=== PATIENT | female | born 1990 | race Caucasian/White ===

== ENCOUNTER 2017-10-23 13:02 | Emergency (ER) | payer OTHER ==
[~2017-10-23] VITALS: Ht 170.2 cm; Wt 92.0 kg
[~2017-10-23 13:02] MED LIST: FRRS300 PO; MTR600X PO; OXYC-57 PO; PRENTAB26 PO
[2017-10-23 13:06] VITALS: BP 116/71; PULSE 94; TEMP 36.3; O2SAT 97; Ht 170.2 cm; Wt 92.0 kg
[2017-10-23] MEDS ORDERED: CHOL1000 PO (13:55)
[2017-10-23] MEDS ORDERED: LCTX PO (13:55)
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
== END 2017-10-23 14:27 | disposition home or self-care (01) ==
LOC: C.EDB 13:04 → C.EDD 14:27
DX: Z04.3 Encounter for examination and observation following other accident (principal); Z3A.32 32 weeks gestation of pregnancy; Z88.0 Allergy status to penicillin

== ENCOUNTER 2020-09-23 21:28 | Inpatient (IN) ==
--- OUTSIDE RECORDS SUMMARY | 2020-09-23 21:30 | External Medical Summary | Continuity of Care Document ---
:1990 Author Name Eva Calhoun Address Unavailable Unavailable , Care Team Providers Name Role Phone Tono Calhoun Unavailable [email or web address], [email or web address] Unavailable Unavailable Unavailable Unavailable Unavailable Problems Active medical history not documented Allergies and Adverse Reactions Allergy history not documented Medications Medications not documented Procedures Procedures not documented Immunizations Immunizations not documented Plan of Treatment Planned Observations Planned Goals not documented Results No Known Results Results not documented
--- NOTE | 2020-09-23 22:51 | History and Physical Report ---
DATE OF ADMISSION: 09/23/2020 CHIEF COMPLAINT: Intrauterine at 38 weeks 3 days, contractions, repeat . HISTORY OF PRESENT ILLNESS: The patient is a 30-year-old 3, para 2, general health is good. Her due date is 10/04/2020. She has had no problems. She is group B strep positive. Her first delivery was in 2014 where she had an 18-hour labor, delivered a male , 10 pounds 2 ounces via . Postoperatively, became septic, spent 2 days in the ICU. eventually was fine, was given antibiotics. Cultures were not positive. Second delivery 2018, girl, 9 pounds 8 ounces at 39 weeks, repeat . No problems. Was done at [facility]. The patient has been jaqueline off and on since this morning. At times she will be quiet, other times she will have runs of contractions down to every 7 minutes, lasting for an hour or so. Some of these contractions are rated 7/10 on the pain scale. She has not complained of leakage of fluid, or any vaginal bleeding. PAST MEDICAL HISTORY: She has 2 children in good health. ALLERGIES: SHE IS ALLERGIC TO PENICILLIN, WHICH CAUSES SWELLING OF HER THROAT. PAST SURGICAL HISTORY: She has had 2 C-sections, had wisdom teeth removed. MEDICAL HISTORY: No history of rheumatic fever, heart disease, heart murmur, diabetes, tuberculosis. SOCIAL HISTORY: No smoking, no alcohol intake with . Works at [employer]. FAMILY HISTORY: Mom 62 in good health. Father 62 in good health. Two brothers in good health. REVIEW OF SYSTEMS: She has occasional migraine headaches and when she is she gets ocular migraines. PHYSICAL EXAMINATION: GENERAL: Well-developed, well-nourished 30-year-old white female, alert, oriented x3 and cooperative. EYES: Conjunctivae are pink. Sclerae white, no evidence of jaundice. HEART: Had regular rhythm. S1, S2 are normal. LUNGS: Clear to auscultation and percussion. ABDOMEN: Soft and nontender. Contractions were palpable. Estimated weight was well over 9 pounds. There is a well-healed Pfannenstiel scar. PELVIC: Revealed vertex presentation, ballottable. Cervix was posterior, 1 cm, uneffaced. MUSCULOSKELETAL: No calf tenderness. IMPRESSIONS OF THIS CASE: Status post 2 C-sections, status post wisdom teeth removal and early labor.
[2020-09-23] MEDS ORDERED: CLINDAMYCIN 900 MG in DEXTROSE 5% 50 ML IV ONE (23:45)
[2020-09-23] MEDS ORDERED: CITRIC ACID/SODIUM CITRATE 15 ML UDC PO ONE (23:45)
[2020-09-24] MEDS: LACTATED RINGER'S 1,000 ML IV SCH
[2020-09-24 00:02] LABS: Basophils # (auto) 0.01 K/uL (0-0.2); Basophils % (auto) 0.1 %; Eosinophils # (auto) 0.03 K/uL (0-0.5); Eosinophils % (auto) 0.3 %; Hematocrit (blood only) 33.8 % (37-47); Hemoglobin 11.7 g/dL (12.0-16.0); Immature Granulocytes # (auto) 0.05 K/uL (0.00-0.02); Immature Granulocytes % (auto) 0.6 %; Lymphocytes # (auto) 2.41 K/uL (1.2-3.4); Mean Corpuscular Hemoglobin 29.8 pg (25-34); Mean Platelet Volume 10.4 fL (7.4-10.4); Monocytes # (auto) 0.57 K/uL (0.11-0.59); Monocytes % (auto) 6.6 %; Neutrophils # (auto) 5.53 K/uL (1.4-6.5); Neutrophils % (auto) 64.4 %; Platelet Count 179 K/uL (130-400); RDW Coefficient of Variation 13.4 % (11.5-14.5); RDW Standard Deviation 41.9 fL (36.4-46.3); Red Blood Count 3.93 M/uL (4.2-5.4)
[2020-09-24 00:04] LABS: Mean Corpuscular Hgb Conc 34.6 g/dL (32-36)
[2020-09-24] MEDS ORDERED: ePHEDrine sulfate 50 MG/ML AMP IV PRN (00:31)
[2020-09-24] MEDS ORDERED: diphenhydrAMINE 50 MG/ML VIAL IV PRN ×2 (00:31→18:31)
[2020-09-24] MEDS ORDERED: HYDROmorphone INJ 0.5 MG/0.5 ML SYR IV PRN (00:31)
[2020-09-24] MEDS ORDERED: LACTATED RINGER'S 500 ML IV PRN (00:31)
[2020-09-24] MEDS ORDERED: NALOXONE HCL 0.08 MG in SYRINGE 1.8 ML IV PRN (00:31)
[2020-09-24] MEDS ORDERED: NALOXONE HCL 1 MG in SODIUM CHLORIDE 0.9% 1000ML 1,000 ML IV PRN (00:31)
[2020-09-24] MEDS ORDERED: MoRPHine SULFATE PF 1 MG/ML 10 ML AMP/VIAL INT SPINAL ONE (00:31)
[2020-09-24] MEDS ORDERED: NALOXONE HCL 0.4 MG/1 ML VIAL/CARP IV PRN (00:31)
--- NOTE | 2020-09-24 00:34 | Anesthesiology Consultation ---
Date of Service September 24, 2020 Covid 19 negative on 09/23/20. Assessment & Plan (1) Encounter for pre-operative examination: Chart Review Chart Review: Acceptable Risk for Surgery and Patient NOT seen in Pre Admission Testing Consults Requested none ASA ASA2 Proposed Anesthesia Anesthesia Type: MAC Spinal Risk / Benefits Reviewed With: PT / POA / Parent / Guardian, Accepts Plan and Informed Consent Obtained History Surgery Operation Date: 09/23/20 23:30 Proposed Procedures p Section in OR - Luigi Cristin Forbes MD Height/Weight Height: 5 ft 8 in Weight: 100.698 kg Allergies Allergy/AdvReac Type Severity Reaction Status Date / Time Penicillins Allergy Severe SEVERE Verified 10/23/17 13:55 HIVES Medications Home Medications Medication Instructions Recorded Confirmed Last Taken vit no.[id number] 1 tab PO DAILY 09/23/20 09/23/20 09/23/20 [ Vitamin] Active Medications Generic Name Dose Route Start Last Admin Trade Name Freq PRN Reason Stop Dose Admin Lactated Ringer's 1,000 mls @ 125 mls/hr 09/23/20 23:45 09/24/20 00:00 Lr IV 10/23/20 23:44 999 mls/hr .Q8H BRUNA Administration NPO Date Last Intake of Fluids: 09/23/20 Time Last Intake of Fluids: 20:00 Date Last Intake of Solids: 09/23/20 Time Last Intake of Solids: 16:00 Exercise / Class Metabolic Activity II 4-5 Yardwork/Stairs/Walk up hill Past Anesthesia History No Hx of Anesthesia Complications and No Family Hx of Anesthesia Complications History of PONV No Hx of PONV and No Hx of Motion Sickness Social History Smoking Status: Never smoker Hx Alcohol Use: No Hx Substance Use: No Review of Systems no chest pain or sob Physical Exam Vital Signs Last Vital Signs Temp 36.8 C 09/23/20 21:43 Pulse 85 09/24/20 00:29 Resp 18 09/23/20 21:43 BP 128/73 09/23/20 21:56 Pulse Ox 97 09/24/20 00:29 ENMT Mouth: no TMJ abnormality Thyromental Distance: > or= 3.5 Finger Breadths Mallampati Class: II Neck normal visual inspection Respiratory normal respiratory effort Auscultation: lungs clear to auscultation bilaterally Cardiovascular Rate/Rhythm: regular rate and regular rhythm Musculoskeletal Spine: normal cervical ROM Neurologic moves all extremities Psychiatric Orientation: alert and oriented x 3 Testing Laboratory Results 09/23/20 23:51
[2020-09-24] MEDS ORDERED: MoRPHine SULFATE PF 1 MG/ML 10 ML AMP/VIAL ONE (00:38)
[2020-09-24] MEDS ORDERED: fentaNYL citrate 100 MCG/2 ML VIAL ONE (00:38)
[2020-09-24] MEDS ORDERED: DC INTRASPINAL MORPHINE SCH (00:45)
[2020-09-24] MEDS ORDERED: SODIUM CHLORIDE 0.9% 1000ML 1,000 ML IV SCH (00:45)
[2020-09-24] MEDS ORDERED: NO NARCOTICS OR SEDATIVES SCH (00:45)
[2020-09-24] MEDS ORDERED: OXYTOCIN 10 UNITS/ML VIAL ONE ×3 (00:55→01:41)
[2020-09-24] MEDS ORDERED: PHENYLEPHRINE 100MCG/ML 5ML SYR ONE (00:58)
[2020-09-24] MEDS ORDERED: ONDANSETRON INJ 2 MG/ML 2 ML VIAL ONE (01:03)
[2020-09-24] MEDS ORDERED: OXYTOCIN 10 UNITS/ML VIAL IM ONE (01:43)
--- NOTE | 2020-09-24 01:53 | Post Operative Brief Note ---
Immediate Post Op Note v1 Date of Surgery September 24, 2020 Pre & Post Diagnosis Operation Date: 09/23/20 23:30 Pre-Op Diagnosis: repeat caesarean section labor macrosomia Post-Op Diagnosis: same as above I identified the patient and participated in the time-out.: Yes Procedure Operation Date: 09/23/20 23:30 Actual Procedures p Section in OR Live Female @ 0108 - Luigi Forbes MD Surgeon Luigi Forbes MD Wire Wrapping Machine Operator Dr García Estimated Blood Loss 600 Findings Consistent with Post-Op Diagnosis Specimens placenta Drains Vicente Catheter Anesthesia Type Spinal Disposition Accompanied Patient To Recovery: No Disposition: Recovery Room
[2020-09-24] MEDS ORDERED: BENZOCAINE 20% AER SPR 82.5 GM CAN EXT PRN (01:54)
[2020-09-24] MEDS ORDERED: MAGNESIUM HYDROXIDE SUSP 30 ML UDC PO PRN (01:54)
[2020-09-24] MEDS ORDERED: SUPERCREAM 0.870% 15 GM JAR EXT PRN (01:54)
[2020-09-24] MEDS ORDERED: HYDROCORTISONE ACETATE 25 MG SUPP PR PRN (01:54)
[2020-09-24] MEDS ORDERED: SENNA 8.6 MG TAB PO PRN (01:54)
[2020-09-24] MEDS ORDERED: DIPHTHERIA/TETANUS/PERTUSSIS 0.5 ML SYR/VIAL IM ONE (01:54)
[2020-09-24] MEDS: KETOROLAC 30 MG/ML VIAL IV PRN ×2 (03:10→11:35)
--- NOTE | 2020-09-24 04:13 | Operative Report (OR) ---
DATE OF OPERATION: 09/24/2020 The patient has had 2 previous sections for macrosomia and cephalopelvic disproportion. She is about 38 weeks 3 days. She has been in and out of labor all day. She called in the evening. She has had contractions started in the morning. It would stop and then restart. PREOPERATIVE DIAGNOSIS: Repeat section, active labor. POSTOPERATIVE DIAGNOSES: Repeat section, active labor. Delivered live female infant. SURGEON: Reyes Forbes MD PACKAGE DYE STAND LOADER: Gume García MD ESTIMATED BLOOD LOSS: 600 mL ANESTHESIA: Spinal. OPERATIVE FINDINGS AND PROCEDURE: The patient was brought to the OR table, correctly identified by armband and conversation. Spinal anesthesia was administered. Compression stockings were applied. A Vicente catheter was inserted aseptically in the bladder, connected to gravity drainage. Lower abdomen was painted with an alcohol based sterilizing solution, waited 3 minutes for it to dry. It was draped in usual sterile fashion. Pfannenstiel incision was made through a previous scar. Incision was carried down to the muscle and through the fascia. Then the fascia was undermined bluntly and from the underlying muscle by blunt and sharp dissection. Recti muscles were in the midline. The peritoneum was carefully raised and entered. Several omental adhesions to the undersurface of the incision were taken down. The lower uterine segment was exposed. A section retractor was inserted into the incision to provide adequate exposure of the lower uterine segment. Incision was made above the vesicouterine fold. The lower uterine segment was scored with a knife, then entered bluntly with the scissors. Clear amniotic fluid was seen at this time. Mr Teacher's hand was inserted in uterine cavity, a vectis retractor was applied, fundal pressure, live female infant was delivered. breathed and cried spontaneously, was attended to by the offset lithographic press setter who was scrubbed and present at the time of delivery. Cord blood was taken. The placenta was removed manually. Ten units of Pitocin were injected into the myometrium of the uterus. Uterine cavity was cleansed with a clean sponge. All membranes were removed. The lower uterine segment defect was approximated in layers. Deep layer was a heavy chromic, approximated the muscular layer, then a heavy Vicryl was used to approximate the fascial layer over the muscular layer and 3 interrupted [id number] sutures of Vicryl were placed along the approximation to complete the hemostasis. Following this, hemostasis was good. The bladder edges were restored with a running 3-0 chromic, which restored the integrity of the vesicouterine fold. Tubes and ovaries were inspected. Pelvis was cleansed of all blood clots and debris. Uterus, tubes, and ovaries were reinserted into the abdominal cavity. Incision was checked for hemostasis, it was good. Packs were removed. Peritoneum was closed with a mattress suture of chromic catgut. Recti muscles were approximated with interrupted [id number] suture of chromic catgut. The fascia was closed with continuous interlocking suture of Vicryl on each side, tied in the midline. Subcutaneous was approximated with a running plain and skin edges were approximated with staple clips. I attest to the content of the Intraoperative Record and any orders documented therein. Any exception s are noted below.
[2020-09-24] MEDS: OXYTOCIN 20 UNITS in LACTATED RINGER'S 1,000 ML IV SCH ×2 (04:24→13:35)
[2020-09-24] MEDS: ONDANSETRON INJ 2 MG/ML 2 ML VIAL IV PRN ×2 (04:40→11:35)
--- NOTE | 2020-09-24 05:31 | Anesthesiology Progress Note ---
Date of Service September 24, 2020 Anesthesia Post Procedure Vital Signs Vital Signs: Temp Pulse Resp BP Pulse Ox 09/24/20 04:24 70 95 09/24/20 04:19 90 97 09/24/20 04:16 70 103/53 L 09/24/20 04:15 18 09/24/20 04:14 68 95 09/24/20 04:09 82 96 09/24/20 04:04 87 97 09/24/20 03:59 89 97 09/24/20 03:54 82 97 09/24/20 03:49 78 96 09/24/20 03:45 84 126/76 09/24/20 03:44 84 97 09/24/20 03:39 88 97 09/24/20 03:34 72 95 09/24/20 03:29 70 97 09/24/20 03:24 76 96 09/24/20 03:19 70 95 09/24/20 03:16 71 131/57 L 09/24/20 03:15 18 09/24/20 03:14 76 97 09/24/20 03:09 72 97 09/24/20 03:05 18 09/24/20 03:04 75 97 09/24/20 02:59 65 98 09/24/20 02:57 76 137/63 09/24/20 02:55 18 09/24/20 02:54 77 97 09/24/20 02:49 77 97 09/24/20 02:48 71 133/60 09/24/20 02:45 18 09/24/20 02:44 76 97 09/24/20 02:39 82 97 09/24/20 02:37 75 106/58 L 09/24/20 02:35 18 09/24/20 02:34 88 98 09/24/20 02:30 80 94 09/24/20 02:29 79 97 09/24/20 02:28 86 117/59 L 09/24/20 02:25 18 09/24/20 02:24 90 99 09/24/20 02:19 97 H 99 09/24/20 02:15 36.7 C 18 09/24/20 02:14 79 98 09/24/20 02:09 86 96 09/24/20 02:04 84 98 09/24/20 02:00 86 107/59 L 09/24/20 01:59 83 99 09/24/20 00:29 85 97 09/23/20 21:56 89 128/73 09/23/20 21:43 36.8 C 89 18 Pain Intensity Lower Abdomen: Pain Intensity: 2 Transfer of Care Handoff Completed per policy Notes Mental Status: alert / awake / arousable Patient Amnestic to Procedure: Yes Nausea / Vomiting: adequately controlled Pain: adequately controlled Airway Patency, RR, SpO2: stable & adequate BP & HR: stable & adequate Hydration State: stable & adequate Neuraxial Anesthesia: was administered and sensory block is resolving Anesthetic Complications: no major complications apparent and Pt Satisfied with anesthetic care
[2020-09-24] MEDS: PRENATAL VITAMIN 1 TAB PO SCH (08:19)
[2020-09-24] MEDS: SIMETHICONE 80 MG CHEW PO SCH ×4 (08:19→21:46)
[2020-09-24] MEDS: DOCUSATE SODIUM 100 MG CAP PO SCH ×2 (08:19→21:46)
[2020-09-24] MEDS: FERROUS SULFATE 325 MG TAB PO SCH (08:19)
--- NOTE | 2020-09-24 16:13 | Ultrasound Report ---
US venous doppler LE LT CLINICAL HISTORY: left lower extremity pain COMPARISON STUDY: No previous studies for comparison. FINDINGS: Real-time and color flow Doppler imaging were performed. Flow was seen within the femoral, popliteal and calf veins with no intraluminal thrombus demonstrated. The saphenous vein is patent. IMPRESSION: No evidence of left lower extremity DVT ACT 112: Negative or not required by law. Electronically signed by: Varghese Danielson M.D. 09/24/2020 4:12 PM
[2020-09-24] MEDS ORDERED: PROMETHAZINE HCL 25 MG in SODIUM CHLORIDE 0.9% 50 ML IV PRN (18:31)
[2020-09-24] MEDS ORDERED: ONDANSETRON INJ 2 MG/ML 2 ML VIAL IV PRN (18:31)
[2020-09-24] MEDS ORDERED: KETOROLAC 30 MG/ML VIAL IV PRN (18:31)
[2020-09-24] MEDS ORDERED: ZOLPIDEM TARTRATE 5 MG TAB PO PRN (18:31)
[2020-09-24] MEDS ORDERED: MEPERIDINE HCL 50 MG/ML CARP IV PRN (18:31)
[2020-09-24] MEDS ORDERED: diphenhydrAMINE Capsule 25 MG CAP PO PRN (18:31)
[2020-09-24] MEDS: oxyCODONE/ACETAMINOPHEN 5mg/325mg TAB PO PRN (19:08)
[2020-09-24] MEDS: IBUPROFEN 600 MG TAB PO PRN (19:08)
[2020-09-25] MEDS: LACTATED RINGER'S 1,000 ML IV SCH ×5 (00:54→04:34)
[2020-09-25] MEDS: OXYTOCIN 20 UNITS in LACTATED RINGER'S 1,000 ML IV SCH (00:55)
[2020-09-25] MEDS: oxyCODONE/ACETAMINOPHEN 5mg/325mg TAB PO PRN ×6 (06:04→22:28)
[2020-09-25] MEDS: IBUPROFEN 600 MG TAB PO PRN ×6 (06:05→22:28)
[2020-09-25 06:53] LABS: Basophils # (auto) 0.01 K/uL (0-0.2); Basophils % (auto) 0.1 %; Eosinophils # (auto) 0.03 K/uL (0-0.5); Eosinophils % (auto) 0.4 %; Hematocrit (blood only) 33.7 % (37-47); Hemoglobin 11.2 g/dL (12.0-16.0); Immature Granulocytes # (auto) 0.03 K/uL (0.00-0.02); Immature Granulocytes % (auto) 0.4 %; Lymphocytes # (auto) 1.86 K/uL (1.2-3.4); Lymphocytes % (auto) 22.4 %; Mean Corpuscular Hemoglobin 29.2 pg (25-34); Mean Corpuscular Hgb Conc 33.2 g/dL (32-36); Mean Platelet Volume 10.5 fL (7.4-10.4); Monocytes # (auto) 0.65 K/uL (0.11-0.59); Monocytes % (auto) 7.8 %; Neutrophils # (auto) 5.72 K/uL (1.4-6.5); Neutrophils % (auto) 68.9 %; Platelet Count 159 K/uL (130-400); RDW Coefficient of Variation 13.7 % (11.5-14.5); RDW Standard Deviation 44.2 fL (36.4-46.3); Red Blood Count 3.83 M/uL (4.2-5.4)
[2020-09-25] MEDS: FERROUS SULFATE 325 MG TAB PO SCH (08:10)
[2020-09-25] MEDS: PRENATAL VITAMIN 1 TAB PO SCH (08:10)
[2020-09-25] MEDS: DOCUSATE SODIUM 100 MG CAP PO SCH ×2 (08:10→20:34)
[2020-09-25] MEDS: SIMETHICONE 80 MG CHEW PO SCH ×4 (08:10→20:34)
--- NOTE | 2020-09-25 08:28 | Obstetrical Progress Note ---
Date of Service September 25, 2020 Assessment & Plan Admission and Anticipated Discharge Date Admission Date: September 23, 2020 Subjective Patient is seen and examined. She feels well, no complaints. Pain is under control with oral meds. Ambulating without dizziness Voiding without difficulty Tolerating regular diet with out N&V Flatus + BM NEG Bleeding is minimal No fever/ chills/ CP/ SOB/ N&V/ Leg pain Breast feeding without problems Vital Signs Temp Pulse Resp BP Pulse Ox Pulse Ox 09/24/20 19:00 36.8 C 81 18 121/80 09/24/20 18:30 18 99 09/24/20 17:30 18 99 09/24/20 16:30 36.7 C 71 18 126/82 99 09/24/20 15:30 18 98 09/24/20 14:30 18 98 09/24/20 13:30 18 97 09/24/20 12:30 18 98 09/24/20 11:20 36.8 C 84 18 119/80 99 09/24/20 10:01 97 09/24/20 09:08 99 Intake and Output 09/24/20 09/25/20 09/25/20 22:59 06:59 14:59 Intake Total 616.667 / 1618.667 Output Total 800 / 800 Balance 616.667 / 818.667 -800 / 818.667 Intake: IV 616.667 / 1618.667 Pitocin 20 Units In Lr 1,000 ml 616.667 / 1618.667 @ 0 mls/hr IV .Q0M [facility] Rx#: [id number] Output: Urine 800 / 800 Lab Results 09/23/20 09/23/20 09/23/20 Range/Units 23:51 23:51 Unknown WBC 8.60 (4.8-10.8) K/uL RBC 3.93 L (4.2-5.4) M/uL Hgb 11.7 L (12.0-16.0) g/dL Hct 33.8 L (37-47) % MCV 86.0 (80-100) fL MCH 29.8 (25-34) pg MCHC 34.6 (32-36) g/dL RDW Std Deviation 41.9 (36.4-46.3) fL RDW Coeff of Janet 13.4 (11.5-14.5) % Plt Count 179 (130-400) K/uL MPV 10.4 (7.4-10.4) fL Immature Gran % (Auto) 0.6 % Neut % (Auto) 64.4 % Lymph % (Auto) 28.0 % [place] % (Auto) 6.6 % Eos % (Auto) 0.3 % Baso % (Auto) 0.1 % Neut # (Auto) 5.53 (1.4-6.5) K/uL Lymph # (Auto) 2.41 (1.2-3.4) K/uL Henderson # (Auto) 0.57 (0.11-0.59) K/uL Eos # (Auto) 0.03 (0-0.5) K/uL Baso # (Auto) 0.01 (0-0.2) K/uL Immature Gran # (Auto) 0.05 H (0.00-0.02) K/uL COVID-19 Eval Order Covid19 IDNow atMMIC SARS-CoV-2, RNA, NAAT (NEGATIVE) Blood Type B Positive Antibody Screen NEGATIVE 09/23/20 09/25/20 Range/Units Unknown 05:53 WBC 8.30 (4.8-10.8) K/uL RBC 3.83 L (4.2-5.4) M/uL Hgb 11.2 L (12.0-16.0) g/dL Hct 33.7 L (37-47) % MCV 88.0 (80-100) fL MCH 29.2 (25-34) pg MCHC 33.2 (32-36) g/dL RDW Std Deviation 44.2 (36.4-46.3) fL RDW Coeff of Janet 13.7 (11.5-14.5) % Plt Count 159 (130-400) K/uL MPV 10.5 H (7.4-10.4) fL Immature Gran % (Auto) 0.4 % Neut % (Auto) 68.9 % Lymph % (Auto) 22.4 % Henderson % (Auto) 7.8 % Eos % (Auto) 0.4 % Baso % (Auto) 0.1 % Neut # (Auto) 5.72 (1.4-6.5) K/uL Lymph # (Auto) 1.86 (1.2-3.4) K/uL Henderson # (Auto) 0.65 H (0.11-0.59) K/uL Eos # (Auto) 0.03 (0-0.5) K/uL Baso # (Auto) 0.01 (0-0.2) K/uL Immature Gran # (Auto) 0.03 H (0.00-0.02) K/uL COVID-19 Eval Order SARS-CoV-2, RNA, NAAT NEGATIVE (NEGATIVE) Blood Type Antibody Screen PE: General: Alert, orientedx3, NAD CVS: S1S2 RRR Lungs; CTAB Abd: soft, NT, ND, BS+, fundus firm, below Umbilicus Incision/ [place]: Clean, dry, intact Perineum intact, Lochia rubra minimal Ext; NT, no edema AP: 30 yo s/p C Section, pod# 1 VSS Afebrile doing well Continue routine postop care Encourage ambulation, PO intake All questions were answered D/C home tomorrow
[2020-09-25] MEDS ORDERED: bisacodyL 5 MG TABEC PO SCH (20:00)
[2020-09-26] MEDS ORDERED: bisacodyL 10 MG SUPP PR PRN (01:54)
[2020-09-26] MEDS: oxyCODONE/ACETAMINOPHEN 5mg/325mg TAB PO PRN ×3 (02:44→10:40)
[2020-09-26] MEDS: IBUPROFEN 600 MG TAB PO PRN ×3 (02:45→10:39)
[2020-09-26 06:54] LABS: Hematocrit (blood only) 32.4 % (37-47); Hemoglobin 10.7 g/dL (12.0-16.0)
[2020-09-26] MEDS: PRENATAL VITAMIN 1 TAB PO SCH (08:31)
[2020-09-26] MEDS: DOCUSATE SODIUM 100 MG CAP PO SCH (08:31)
[2020-09-26] MEDS: FERROUS SULFATE 325 MG TAB PO SCH (08:31)
[2020-09-26] MEDS: SIMETHICONE 80 MG CHEW PO SCH (08:31)
--- NOTE | 2020-09-26 10:25 | Obstetrical Progress Note ---
Date of Service September 26, 2020 Assessment & Plan Admission and Anticipated Discharge Date Admission Date: September 23, 2020 Subjective Patient is seen and examined. She feels well, no complaints. Desires d/c today Pain is under control with oral meds. Ambulating without dizziness Voiding without difficulty Tolerating regular diet with out N&V Flatus + BM none Bleeding is minimal No fever/ chills/ CP/ SOB/ N&V/ Leg pain Breast feeding without problems Vital Signs Temp Pulse Resp BP Pulse Ox 09/26/20 08:05 36.7 C 80 18 121/79 09/26/20 00:45 36.9 C 92 H 18 130/77 96 09/25/20 19:50 36.7 C 98 H 18 128/75 09/25/20 15:05 36.9 C 92 H 18 116/79 97 09/25/20 12:30 36.8 C 92 H 16 121/75 97 Lab Results 09/23/20 09/23/20 09/23/20 Range/Units 23:51 23:51 Unknown WBC 8.60 (4.8-10.8) K/uL RBC 3.93 L (4.2-5.4) M/uL Hgb 11.7 L (12.0-16.0) g/dL Hct 33.8 L (37-47) % MCV 86.0 (80-100) fL MCH 29.8 (25-34) pg MCHC 34.6 (32-36) g/dL RDW Std Deviation 41.9 (36.4-46.3) fL RDW Coeff of Janet 13.4 (11.5-14.5) % Plt Count 179 (130-400) K/uL MPV 10.4 (7.4-10.4) fL Immature Gran % (Auto) 0.6 % Neut % (Auto) 64.4 % Lymph % (Auto) 28.0 % [place] % (Auto) 6.6 % Eos % (Auto) 0.3 % Baso % (Auto) 0.1 % Neut # (Auto) 5.53 (1.4-6.5) K/uL Lymph # (Auto) 2.41 (1.2-3.4) K/uL [place] # (Auto) 0.57 (0.11-0.59) K/uL Eos # (Auto) 0.03 (0-0.5) K/uL Baso # (Auto) 0.01 (0-0.2) K/uL Immature Gran # (Auto) 0.05 H (0.00-0.02) K/uL COVID-19 Eval Order Covid19 IDNow atMNDC SARS-CoV-2, RNA, NAAT (NEGATIVE) Blood Type B Positive Antibody Screen NEGATIVE 09/23/20 09/25/20 09/26/20 Range/Units Unknown 05:53 06:44 WBC 8.30 (4.8-10.8) K/uL RBC 3.83 L (4.2-5.4) M/uL Hgb 11.2 L 10.7 L (12.0-16.0) g/dL Hct 33.7 L 32.4 L (37-47) % MCV 88.0 (80-100) fL MCH 29.2 (25-34) pg MCHC 33.2 (32-36) g/dL RDW Std Deviation 44.2 (36.4-46.3) fL RDW Coeff of Janet 13.7 (11.5-14.5) % Plt Count 159 (130-400) K/uL MPV 10.5 H (7.4-10.4) fL Immature Gran % (Auto) 0.4 % Neut % (Auto) 68.9 % Lymph % (Auto) 22.4 % [place] % (Auto) 7.8 % Eos % (Auto) 0.4 % Baso % (Auto) 0.1 % Neut # (Auto) 5.72 (1.4-6.5) K/uL Lymph # (Auto) 1.86 (1.2-3.4) K/uL [place] # (Auto) 0.65 H (0.11-0.59) K/uL Eos # (Auto) 0.03 (0-0.5) K/uL Baso # (Auto) 0.01 (0-0.2) K/uL Immature Gran # (Auto) 0.03 H (0.00-0.02) K/uL COVID-19 Eval Order SARS-CoV-2, RNA, NAAT NEGATIVE (NEGATIVE) Blood Type Antibody Screen PE: General: Alert, orientedx3, NAD CVS: S1S2 RRR Lungs; CTAB Abd: soft, NT, ND, BS+, fundus firm, below Umbilicus Incision/ [place]: Clean, dry, intact Perineum intact, Lochia rubra minimal Ext; NT, no edema AP: 30 yo s/p C Section, pod# 2 VSS Afebrile doing well Continue routine postop care Encourage ambulation, PO intake All questions were answered Discussed when to call D/C home , f/u in office Results & Data ([facility]) Vital Signs (Past 12 Hours) Vital Signs Temp Pulse Resp BP Pulse Ox 09/26/20 08:05 36.7 C 80 18 121/79 09/26/20 00:45 36.9 C 92 H 18 130/77 96
--- NOTE | 2020-10-12 02:43 | Discharge Summary (DS) ---
Mrs. Hassan is a 1, para 2, blood type B positive, group B strep positive. She has had 2 previous sections basically for macrosomia. Complications with the first , ended up in the ICU. Second was done at [facility] without incident. This was scheduled to be done at [facility] in several days; however, she called the answering service and had been in labor most of the day. She tried walking, getting in the shower, and various things, but since about 3:00 in the morning she had been up and at times the contractions were rated at a 7/10 pain scale. She was admitted to the hospital and placed on the monitor. Was found to have regular painful contractions, was diagnosed as being in early labor and then subsequently underwent repeat low segment section. She was given prophylactic antibiotics. Her preoperative hemoglobin was 11.7, postoperatively it fell to 10.7. She did well. She remained afebrile throughout her postoperative course. On her third postoperative day, she was ambulating well, eating well, and she was able to be discharged home and be followed by the [facility] team. Her bowel sounds also had returned promptly. LEVON
== END 2020-09-26 13:39 | disposition home or self-care (01) | DRG 788 ==
LOC: OPB 21:28 → 4S1 21:29 → 4S2 09-24 05:31

== ENCOUNTER 2023-05-28 05:42 | Inpatient (IN) ==
--- NOTE | 2023-05-20 09:55 | Anesthesiology Consultation ---
Date of Service May 20, 2023 Assessment & Plan (1) Encounter for pre-operative examination: Chart Review Chart Review: entry level recruiter initiated -Infectious Disease screening: Per PAT nursing assessment on 05/20/23. No known infectious disease contacts in past 10 days or current infectious disease symptoms. No recent travel outside the country. 09/24/20= Done under SAB at L3-4 with one attempt History Surgery Operation Date: 05/28/23 07:30 Proposed Procedures p Repeat Section - Sam Schaffer MD s with Bilateral Tubal Ligation - Sam Schaffer MD Height/Weight Height: 5 ft 8 in Weight: 98.43 kg Allergies Allergy/AdvReac Type Severity Reaction Status Date / Time Penicillins Allergy Severe SEVERE Verified 05/20/23 08:54 HIVES Medications Home Medications Medication Instructions Recorded Confirmed Last Taken vits no.124-ferrous fum 1 tab PO QAM 09/23/20 05/20/23 09/23/20 27 mg iron-folic acid 800 mcg tablet ( Vitamin) albuterol sulfate 90 mcg/actuation 1 inh inhalation QID PRN sob 05/20/23 05/20/23 Unknown aerosol inhaler Past Medical History Medical History Asthma well controlled - rarely uses inhaler, last used during covid infection in April 2023. History of COVID-19 home test positive 04/18/23: symptoms included mild cold symptoms. no current problems. Migraine hx Nausea and vomiting after administration of anesthetic agent Past Family History Family History Other No pertinent family history Past Surgical History Surgical History H/O wisdom tooth extraction Previous section x3 Social History Smoking Status: Never smoker Do You Dip or Chew Tobacco: No Hx Alcohol Use: No Hx Substance Use: No
[2023-05-28] MEDS ORDERED: CLINDAMYCIN/D5W 900 MG/50 ML BAG IV SCH (06:00)
[2023-05-28] MEDS ORDERED: LACTATED RINGER'S 1,000 ML IV SCH ×2 (06:00→09:15)
[2023-05-28] MEDS ORDERED: CITRIC ACID/SODIUM CITRATE 15 ML UDC PO SCH (06:00)
[2023-05-28 06:37] LABS: Basophils # (auto) 0.03 K/uL (0.00-0.20); Basophils % (auto) 0.3 %; Eosinophils # (auto) 0.02 K/uL (0.00-0.50); Eosinophils % (auto) 0.2 %; Hematocrit (blood only) 34.7 % (37.0-47.0); Hemoglobin 11.6 g/dl (12.0-16.0); Lymphocytes # (auto) 2.49 K/uL (1.20-3.40); Lymphocytes % (auto) 25.1 %; Mean Corpuscular Hemoglobin 28.4 pg (25.0-34.0); Mean Corpuscular Hgb Conc 33.4 g/dL (32.0-36.0); Mean Platelet Volume 10.2 fL (9.4-12.4); Neutrophils % (auto) 66.4 %; Platelet Count 192 K/uL (130-400); RDW Coefficient of Variation 12.9 % (11.5-14.5); Red Blood Count 4.08 M/uL (4.20-5.40); White Blood Count 9.94 K/ul (4.8-10.8)
[2023-05-28] MEDS ORDERED: SODIUM CHLORIDE 0.9% 250 ML IV PRN (06:39)
[2023-05-28] MEDS ORDERED: MoRPHine SULFATE PF 1 MG/ML 10 ML AMP/VIAL ONE (07:02)
--- NOTE | 2023-05-28 07:42 | History & Physical Bridge Note ---
Date of Service May 28, 2023 History & Physical Bridge Note I have examined the patient, reviewed the History & Physical and in the interval since the performance of the History & Physical I have noted the following changes of clinical significance: no changes noted
[2023-05-28] MEDS ORDERED: OXYTOCIN 10 UNITS/ML VIAL ONE (08:13)
[2023-05-28] MEDS ORDERED: PHENYLEPHRINE 100MCG/ML 5ML SYR ONE (08:13)
[2023-05-28] MEDS ORDERED: ePHEDrine sulfate 50 MG/5 ML SYR ONE (08:13)
[2023-05-28] MEDS ORDERED: METOCLOPRAMIDE HCL INJ 5 MG/ML 2 ML VIAL ONE (08:13)
[2023-05-28] MEDS ORDERED: ONDANSETRON INJ 2 MG/ML 2 ML VIAL ONE (08:13)
[2023-05-28] MEDS ORDERED: ePHEDrine sulfate 50 MG/ML AMP IV PRN (08:24)
[2023-05-28] MEDS ORDERED: diphenhydrAMINE 50 MG/ML VIAL IV PRN (08:24)
[2023-05-28] MEDS ORDERED: NALOXONE HCL 1 MG in SODIUM CHLORIDE 0.9% 1,000 ML IV PRN (08:24)
[2023-05-28] MEDS ORDERED: MoRPHine SULFATE PF 1 MG/ML 10 ML AMP/VIAL INT SPINAL ONE (08:24)
[2023-05-28] MEDS ORDERED: NALOXONE HCL 0.4 MG/1 ML VIAL/CARP IV PRN (08:24)
[2023-05-28] MEDS ORDERED: LACTATED RINGER'S 500 ML IV PRN (08:24)
[2023-05-28] MEDS ORDERED: MoRPHine SULFATE 2 MG/ML CARP IV PRN (08:24)
[2023-05-28] MEDS ORDERED: NALOXONE HCL 0.08 MG in SYRINGE 1.8 ML IV PRN (08:24)
[2023-05-28] MEDS ORDERED: PROMETHAZINE HCL 12.5 MG in SODIUM CHLORIDE 0.9% 50 ML IV PRN (08:24)
[2023-05-28] MEDS ORDERED: NALBUPHINE HCL INJ 10 MG/ML AMP IV PRN (08:24)
[2023-05-28] MEDS ORDERED: ONDANSETRON INJ 2 MG/ML 2 ML VIAL IV PRN (08:24)
[2023-05-28] MEDS ORDERED: SODIUM CHLORIDE 0.9% 1,000 ML IV SCH (08:30)
[2023-05-28] MEDS ORDERED: NO NARCOTICS OR SEDATIVES SCH (08:30)
[2023-05-28] MEDS ORDERED: DC INTRASPINAL MORPHINE SCH (08:30)
[2023-05-28] MEDS ORDERED: ALBUTEROL HFA 8 GM INHALER INH PRN (09:08)
[2023-05-28] MEDS ORDERED: DIPHTHERIA/TETANUS/PERTUSSIS Vaccine (Tdap, Age 7+yrs) 0.5mL SYR/VL IM ONE (09:08)
[2023-05-28] MEDS ORDERED: SENNA 8.6 MG TAB PO PRN (09:08)
[2023-05-28] MEDS ORDERED: HYDROCORTISONE ACETATE 25 MG SUPP PR PRN (09:08)
[2023-05-28] MEDS ORDERED: MAGNESIUM HYDROXIDE SUSP 30 ML UDC PO PRN (09:08)
[2023-05-28] MEDS ORDERED: BENZOCAINE 20% SPRY 85 APPLN/85 GM CAN EXT PRN (09:08)
--- NOTE | 2023-05-28 09:11 | Post Operative Brief Note ---
Immediate Post Op Note v1 Date of Surgery May 28, 2023 Pre & Post Diagnosis Operation Date: 05/28/23 07:30 Pre-Op Diagnosis: Repeat section with bilateral tubal ligation Post-Op Diagnosis: same I identified the patient and participated in the time-out.: Yes Procedure Operation Date: 05/28/23 07:30 Actual Procedures p Repeat Section for live female child at 0820(Bilateral) - Sam Schaffer MD s with Bilateral Tubal Ligation(Bilateral) - Sam Schaffer MD Surgeon Sam Schaffer MD Senior Cytotechnologist Mariza JOHNSTON Estimated Blood Loss 500 Findings Consistent with Post-Op Diagnosis live female Apgars 8/8 nuchal cord x1 Fluids LR 2000 ml. Specimens placenta Drains Huang Catheter (huang placed following spinal without difficulty. Draining clear yellow urine. Urine output to be monitored by anesthesia intraoperatively) Anesthesia Type Spinal Complications none Disposition Accompanied Patient To Recovery: Yes Overlapping Procedure I was present for: the critical portions of procedure. I was immediately available: during the entire case. Back up surgeon: was not required during procedure.
[2023-05-28] MEDS: KETOROLAC 30 MG/ML VIAL IV PRN ×3 (09:43→21:27)
[2023-05-28] MEDS ORDERED: OXYTOCIN 20 UNITS in LACTATED RINGER'S 1,000 ML IV SCH (11:45)
--- NOTE | 2023-05-28 12:04 | Anesthesiology Progress Note ---
Date of Service May 28, 2023 Anesthesia Post Procedure Vital Signs Vital Signs: Temp Pulse Resp BP Pulse Ox 05/28/23 11:15 36.4 C L 71 20 122/61 05/28/23 10:45 18 05/28/23 10:15 18 05/28/23 10:05 18 05/28/23 10:15 36.6 C 20 05/28/23 09:55 18 05/28/23 09:45 20 05/28/23 09:35 20 05/28/23 09:25 18 05/28/23 09:15 36.6 C 18 05/28/23 11:49 92 H 98 05/28/23 11:42 77 98 05/28/23 11:40 82 99/55 L 05/28/23 11:37 84 98 05/28/23 11:32 78 99 05/28/23 11:30 70 117/53 L 05/28/23 11:27 82 99 05/28/23 11:22 69 99 05/28/23 11:19 71 122/61 05/28/23 11:17 77 99 05/28/23 11:12 80 98 05/28/23 11:10 80 123/53 L 05/28/23 11:07 75 99 05/28/23 11:02 76 99 05/28/23 11:00 76 131/60 05/28/23 10:57 83 98 05/28/23 10:52 80 99 05/28/23 10:47 76 98 05/28/23 10:42 76 99 05/28/23 10:39 84 116/59 L 05/28/23 10:37 82 99 05/28/23 10:32 85 100 05/28/23 10:29 80 121/65 05/28/23 10:27 78 98 05/28/23 10:22 66 98 05/28/23 10:20 72 121/58 L 05/28/23 10:17 74 98 05/28/23 10:12 75 99 05/28/23 10:10 73 116/53 L 05/28/23 10:07 78 98 05/28/23 10:02 87 98 05/28/23 09:59 70 112/60 05/28/23 09:57 72 97 05/28/23 09:52 66 99 05/28/23 09:49 72 114/65 10/18/23 09:47 76 98 05/28/23 09:42 79 96 05/28/23 09:39 77 122/72 05/28/23 09:37 79 98 05/28/23 09:32 75 96 05/28/23 09:29 73 113/67 93 05/28/23 09:27 87 97 05/28/23 09:22 84 97 05/28/23 09:18 87 94 05/28/23 09:17 79 114/64 95 05/28/23 07:00 36.6 C 87 20 129/74 05/28/23 06:07 93 H 119/76 05/28/23 06:05 36.5 C 18 Pain Intensity Bilateral Abdomen: Pain Intensity: 2 Transfer of Care Handoff Completed per policy Notes Mental Status: alert / awake / arousable Patient Amnestic to Procedure: Yes Nausea / Vomiting: adequately controlled Pain: adequately controlled Airway Patency, RR, SpO2: stable & adequate BP & HR: stable & adequate Hydration State: stable & adequate Neuraxial Anesthesia: was administered and sensory block is resolving Anesthetic Complications: no major complications apparent
[2023-05-28] MEDS: SIMETHICONE 80 MG CHEW PO SCH ×3 (12:47→19:41)
--- NOTE | 2023-05-28 18:53 | Operative Report ---
Post Operative Report Pre & Post Diagnosis Operation Date: 05/28/23 07:30 Pre-Op Diagnosis: Repeat section with bilateral tubal ligation Post-Op Diagnosis: same I identified the patient and participated in the time-out.: Yes Procedure Operation Date: 05/28/23 07:30 Actual Procedures p Repeat Section for live female child at 0820(Bilateral) - Sam Schaffer MD s with Bilateral Tubal Ligation(Bilateral) - Sam Schaffer MD Surgeon Sam Schaffer MD Senior Benefits Manager Mariza JOHNSTON Estimated Blood Loss 500 Findings Consistent with Post-Op Diagnosis Live female Apgars 8/8 nuchal cord x1 Fluids LR 2000 ml. Specimens placenta right and left fallopian tubes Drains Vicente Complications none Disposition Accompanied Patient To Recovery: Yes Indications Elective repeat voluntary sterilization Description of Procedure The patient was identified prior to the start of the procedure a timeout was called and antibiotics were given before the incision. Low Pfannenstiel incision through her prior scar was then made entering into the abdominal cavity in successive layers without difficulty upon entering into the peritoneal cavity pickups and Metzenbaum scissors were then used to develop a flat bladder flap there was some adhesions noted high up on the uterus which were dissected down. A low segment transverse incision was then made and the incision was nicked copious amounts of clear amniotic fluid was noted. The incision was then widened in the AP diameter the infant was then delivered from the vertex presentation with the aid of fundal pressure. Delivered a live female Apgars were 8 and 8 weight pending there was a nuchal cord x1 that was reduced at time of delivery of the head. After the second cord delay the cord was clamped and cut and handed to the embedded developer present for the delivery. Placenta was then delivered spontaneously and intact the uterus was then exteriorized ring forceps were then placed on both angles another lap pad was then used to curette out clots and debris from the uterus cavity. Uterus was firm the uterus was closed in a single layer closure with 0 Vicryl suture in a continuous interlocking fashion. Tubes ovaries bilaterally were found to be within normal limits the patient requested voluntary sterilization the hand-held LigaSure device was then used to reinforce the right and then the left tube no active bleeding was noted specimens were then submitted to pathology as a separate specimen. Uterus was then placed back into the normal anatomical position. The lower uterine segment was once more inspected no active bleeding the initial sponge needle instrument counts were found to be correct. The fascia was then reapproximated from both ends using 0 Vicryl suture in a continuous fashion subcuticular space was irrigated and then closed with 3-0 plain suture interrupted. The skin was then reapproximated with 4-0 Monocryl suture. Telfa and ABD dressing were applied urine was clear the final sponge needle instrument count being correct the estimated blood loss was 500 mL the patient was then placed supine on a stretcher and taken to recovery room in stable condition thank you. I attest to the content of the Intraoperative Record and any orders documented therein. Any exceptions are noted below. Mariza JOHNSTON was needed to provide retraction, assistane at delivery of baby with fundal pressure, closure of uterus and abdomen.
[2023-05-28] MEDS: DOCUSATE SODIUM 100 MG CAP PO SCH (19:41)
[2023-05-29] MEDS ORDERED: diphenhydrAMINE 50 MG/ML VIAL IV PRN (02:30)
[2023-05-29] MEDS ORDERED: ONDANSETRON INJ 2 MG/ML 2 ML VIAL IV PRN (02:30)
[2023-05-29] MEDS ORDERED: diphenhydrAMINE Capsule 25 MG CAP PO PRN (02:30)
[2023-05-29] MEDS ORDERED: PROMETHAZINE HCL 25 MG in SODIUM CHLORIDE 0.9% 50 ML IV PRN (02:30)
[2023-05-29] MEDS: IBUPROFEN 600 MG TAB PO PRN ×6 (03:05→23:44)
[2023-05-29] MEDS: oxyCODONE/ACETAMINOPHEN 5mg/325mg TAB PO PRN ×5 (03:05→21:22)
[2023-05-29 06:38] LABS: Basophils # (auto) 0.02 K/uL (0.00-0.20); Basophils % (auto) 0.2 %; Eosinophils # (auto) 0.04 K/uL (0.00-0.50); Eosinophils % (auto) 0.4 %; Immature Granulocytes # (auto) 0.05 K/uL (0.01-0.20); Immature Granulocytes % (auto) 0.5 %; Lymphocytes # (auto) 1.52 K/uL (1.20-3.40); Lymphocytes % (auto) 16.5 %; Mean Corpuscular Hemoglobin 28.7 pg (25.0-34.0); Mean Corpuscular Hgb Conc 33.3 g/dL (32.0-36.0); Mean Corpuscular Volume 86.2 fL (80.0-100.0); Mean Platelet Volume 10.3 fL (9.4-12.4); Monocytes # (auto) 0.62 K/uL (0.11-0.59); Monocytes % (auto) 6.7 %; Neutrophils # (auto) 6.95 K/uL (1.40-6.50); Neutrophils % (auto) 75.7 %; Platelet Count 152 K/uL (130-400); RDW Coefficient of Variation 13.1 % (11.5-14.5); RDW Standard Deviation 40.3 fL (36.4-46.3); Red Blood Count 3.48 M/uL (4.20-5.40)
[2023-05-29] MEDS: PRENATAL VITAMIN 1 TAB PO SCH (08:09)
[2023-05-29] MEDS: FERROUS SULFATE 325 MG TAB PO SCH (08:09)
[2023-05-29] MEDS: SIMETHICONE 80 MG CHEW PO SCH ×4 (08:09→17:59)
[2023-05-29] MEDS: DOCUSATE SODIUM 100 MG CAP PO SCH ×2 (08:09→20:00)
[2023-05-29] MEDS ORDERED: PRENATAL VITAMIN 1 TAB PO SCH (09:00)
--- NOTE | 2023-05-29 09:18 | Obstetrical Progress Note ---
Date of Service May 29, 2023 Assessment & Plan Admission and Anticipated Discharge Date Admission Date: May 28, 2023 Subjective Patient is seen and examined. She feels well, no complaints. Pain is under control with oral meds. Ambulating without dizziness Voiding without difficulty Tolerating regular diet with out N&V Flatus + Bleeding is minimal No fever/ chills/ CP/ SOB/ N&V/ Leg pain Breast feeding without problems Vital Signs Temp Pulse Resp BP Pulse Ox O2 Del Method 05/29/23 08:55 36.6 C 79 16 114/72 98 Room Air 05/29/23 02:45 36.4 C L 100 H 18 124/75 96 Room Air 05/29/23 02:00 16 95 05/29/23 01:30 18 96 05/29/23 00:20 18 97 05/28/23 23:30 36.9 C 92 H 18 105/69 97 Room Air 05/28/23 23:15 18 95 05/28/23 22:36 18 95 05/28/23 21:56 18 95 Lab Results 05/28/23 05/28/23 05/29/23 Range/Units 05:50 05:58 05:55 WBC 9.94 9.20 (4.8-10.8) K/ul RBC 4.08 L 3.48 L (4.20-5.40) M/uL Hgb 11.6 L 10.0 L (12.0-16.0) g/dl Hct 34.7 L 30.0 L (37.0-47.0) % MCV 85.0 86.2 (80.0-100.0) fL MCH 28.4 28.7 (25.0-34.0) pg MCHC 33.4 33.3 (32.0-36.0) g/dL RDW Std Deviation 40.0 40.3 (36.4-46.3) fL RDW Coeff of Janet 12.9 13.1 (11.5-14.5) % Plt Count 192 152 (130-400) K/uL MPV 10.2 10.3 (9.4-12.4) fL Immature Gran % (Auto) 1.0 0.5 % Neut % (Auto) 66.4 75.7 % Lymph % (Auto) 25.1 16.5 % [place] % (Auto) 7.0 6.7 % Eos % (Auto) 0.2 0.4 % Baso % (Auto) 0.3 0.2 % Neut # (Auto) 6.60 H 6.95 H (1.40-6.50) K/uL Lymph # (Auto) 2.49 1.52 (1.20-3.40) K/uL [place] # (Auto) 0.70 H 0.62 H (0.11-0.59) K/uL Eos # (Auto) 0.02 0.04 (0.00-0.50) K/uL Baso # (Auto) 0.03 0.02 (0.00-0.20) K/uL Immature Gran # (Auto) 0.10 0.05 (0.01-0.20) K/uL Blood Type B Positive Antibody Screen NEGATIVE Crossmatch See Detail PE: General: Alert, orientedx3, NAD CVS: S1S2 RRR Lungs; CTAB Abd: soft, NT, ND, BS+, fundus firm, below Umbilicus Incision/ Dressing: Clean, dry, intact Perineum intact, Lochia rubra minimal Ext; NT, no edema AP: 33 yo s/p C Section, pod# 1 VSS Afebrile doing well Continue routine postop care Encourage ambulation, PO intake All questions were answered D/C home tomorrow Results & Data Vital Signs (Past 12 Hours) Vital Signs Temp Pulse Resp BP Pulse Ox O2 Del Method 05/29/23 08:55 36.6 C 79 16 114/72 98 Room Air 05/29/23 02:45 36.4 C L 100 H 18 124/75 96 Room Air 05/29/23 02:00 16 95 05/29/23 01:30 18 96 05/29/23 00:20 18 97 05/28/23 23:30 36.9 C 92 H 18 105/69 97 Room Air 05/28/23 23:15 18 95 05/28/23 22:36 18 95 05/28/23 21:56 18 95
[2023-05-29] MEDS ORDERED: bisacodyL 5 MG TABEC PO SCH (20:00)
[2023-05-30] MEDS: oxyCODONE/ACETAMINOPHEN 5mg/325mg TAB PO PRN ×3 (01:14→12:26)
[2023-05-30] MEDS: IBUPROFEN 600 MG TAB PO PRN ×3 (03:41→12:27)
[2023-05-30 07:09] LABS: Hematocrit (blood only) 30.4 % (37.0-47.0); Hemoglobin 9.8 g/dl (12.0-16.0)
[2023-05-30] MEDS: PRENATAL VITAMIN 1 TAB PO SCH (08:03)
[2023-05-30] MEDS: DOCUSATE SODIUM 100 MG CAP PO SCH (08:03)
[2023-05-30] MEDS: FERROUS SULFATE 325 MG TAB PO SCH (08:03)
[2023-05-30] MEDS: SIMETHICONE 80 MG CHEW PO SCH ×2 (08:05→12:26)
[2023-05-30] MEDS ORDERED: bisacodyL 10 MG SUPP PR PRN (09:06)
--- NOTE | 2023-05-30 10:53 | Obstetrical Progress Note ---
Date of Service May 30, 2023 Subjective Ambulation: ambulating normally Voiding: no voiding problems Passing Gas:: Yes Diet Tolerance:: regular diet Lochia:: Small Feeding Type:: breast feeding Current Pain Level(1-10): 0 doing well. wants to go home Physical Exam Constitutional WD/WN, vitals as above Gastrointestinal (Abdomen) Inspection/Auscultation: abdomen normal to inspection and + abdominal surgical incision incision c/d/i Musculoskeletal Extremities: extremities normal to inspection Skin no rashes, warm and dry Neurologic patellar DTR's 2+ bilat, sensation intact Psychiatric A+Ox3, euthymic affect Results & Data Vital Signs (Past 12 Hours) Vital Signs Temp Pulse Pulse Resp BP Pulse Ox O2 Del Method 05/30/23 07:40 36.8 C 89 18 133/85 97 Room Air 05/29/23 23:46 36.6 C 94 H 18 129/78 96 Room Air Laboratory Results 05/28/23 05/28/23 05/29/23 05:50 05:58 05:55 WBC 9.94 9.20 RBC 4.08 L 3.48 L Hgb 11.6 L 10.0 L Hct 34.7 L 30.0 L MCV 85.0 86.2 MCH 28.4 28.7 MCHC 33.4 33.3 RDW Std Deviation 40.0 40.3 RDW Coeff of Janet 12.9 13.1 Plt Count 192 152 MPV 10.2 10.3 Immature Gran % (Auto) 1.0 0.5 Neut % (Auto) 66.4 75.7 Lymph % (Auto) 25.1 16.5 [place] % (Auto) 7.0 6.7 Eos % (Auto) 0.2 0.4 Baso % (Auto) 0.3 0.2 Neut # (Auto) 6.60 H 6.95 H Lymph # (Auto) 2.49 1.52 [place] # (Auto) 0.70 H 0.62 H Eos # (Auto) 0.02 0.04 Baso # (Auto) 0.03 0.02 Immature Gran # (Auto) 0.10 0.05 Blood Type B Positive Antibody Screen NEGATIVE Crossmatch See Detail 05/30/23 06:36 WBC RBC Hgb 9.8 L Hct 30.4 L MCV MCH MCHC RDW Std Deviation RDW Coeff of Janet Plt Count MPV Immature Gran % (Auto) Neut % (Auto) Lymph % (Auto) [place] % (Auto) Eos % (Auto) Baso % (Auto) Neut # (Auto) Lymph # (Auto) [place] # (Auto) Eos # (Auto) Baso # (Auto) Immature Gran # (Auto) Blood Type Antibody Screen Crossmatch
== END 2023-05-30 14:45 | disposition home or self-care (01) | DRG 785 ==
LOC: 4S1 05:42 → EDSTATUS 07:30 → 4E2 12:00
PROC: M.PPTLD (2023-05-28 07:30)
DX: O99.52 Diseases of the respiratory system complicating childbirth; Z37.0 Single live birth; Z3A.00 Weeks of gestation of pregnancy not specified; O34.211 Maternal care for low transverse scar from previous cesarean delivery; O69.81X0 Labor and delivery complicated by cord around neck, without compression, not applicable or unspecified; Z30.2 Encounter for sterilization; J45.909 Unspecified asthma, uncomplicated; Z88.0 Allergy status to penicillin; Z79.899 Other long term (current) drug therapy